=== PATIENT | male | born 1955 | race Caucasian/White ===

== ENCOUNTER 2024-08-19 14:47 | Outpatient (REF) | payer MEDICARE, SELFPAY ==
[2024-08-19 15:21] LABS: Abs Immature Grans 0.02 10^3/uL (0.0-0.06); Absolute Basophil Count 0.03 10^3/uL (0.0-0.2); Absolute Eosinophil Count 0.03 10^3/uL (0.0-0.7); Absolute Lymphocyte Count 1.15 10^3/uL (1.2-3.4); Absolute Monocyte Count 0.42 10^3/uL (0.1-0.8); Absolute Neutrophil Count 2.94 10^3/uL (1.2-6.7); Basophils % 0.7 %; Eosinophils % 0.7 %; HCT 47.1 % (40.0-50.0); HGB 16.8 g/dL (13.5-17.5); Immature Grans % 0.4 %; Lymphocytes % 25.1 %; MCH 32.1 pg (27.0-33.0); MCHC 35.7 % (32.0-36.0); MCV 90 fL (80-95); MPV 10.9 fL (8.0-11.0); Monocytes % 9.2 %; Neutrophils % 63.9 %; Platelet Count 185 10^3/uL (130-400); RBC 5.23 10^6/uL (4.36-5.78); RDW 12.3 % (11.8-14.1); RDW-SD 39.9 fL; WBC 4.59 10^3/uL (4.4-10.8)
[2024-08-19 16:39] LABS: ALT 21 U/L (16-63); AST 20 U/L (15-37); Alkaline Phosphatase 55 U/L (46-116); Anion Gap 8.8 mmol/L (3-11); BUN 11 mg/dL (7-18); Bilirubin, Total 1.4 mg/dL (0.2-1.0); CO2 26.2 mmol/L (21.0-32.0); CREATININE 1.2 mg/dL (0.70-1.30); Calcium 9.4 mg/dL (8.5-10.1); Chloride 103 mmol/L (98-107); Estimated GFR 65.06 (mL/min/1.73m2); Glucose 103 mg/dL (74-106); Potassium 4.2 mmol/L (3.5-5.1); Sodium 138 mmol/L (136-145); Total Protein 6.9 g/dL (6.4-8.2)
== END 2024-08-19 14:48 | disposition home or self-care (01) ==
LOC: NCHCN 14:47
PROVIDERS: Visit Provider Family Medicine
DX: I10 Essential (primary) hypertension (principal); M1A.9XX0 Chronic gout, unspecified, without tophus (tophi)
CPT/HCPCS: 80053; 84550; 85025

== ENCOUNTER → 2024-09-25 12:58 | Outpatient (BNVA) | payer MEDICARE, SELFPAY | PROVIDERS: PCP Family Medicine; Referring Provider Family Medicine; Visit Provider Surgery | DX: Z12.11 Encounter for screening for malignant neoplasm of colon (principal); Z86.0109 Personal history of other colon polyps; Z79.01 Long term (current) use of anticoagulants | CPT/HCPCS: S0285 ==

== ENCOUNTER 2024-09-28 08:42 | Emergency (ER) | payer MEDICARE, SELFPAY ==
[2024-09-28] VITALS (12 sets, daily range): BP systolic 120–130; BP diastolic 68–82; PULSE 64–74; RESP 14–16; TEMP 36.1; O2SAT 96–98
[2024-09-28 09:33] LABS: Abs Immature Grans 0.02 10^3/uL (0.0-0.06); HCT 41.7 % (40.0-50.0); HGB 14.3 g/dL (13.5-17.5); Immature Grans % 0.5 %; MCH 31.4 pg (27.0-33.0); MCHC 34.3 % (32.0-36.0); MCV 92 fL (80-95); MPV 10.1 fL (8.0-11.0); Platelet Count 178 10^3/uL (130-400); RBC 4.55 10^6/uL (4.36-5.78); RDW 12.3 % (11.8-14.1); RDW-SD 41.0 fL; WBC 3.99 10^3/uL (4.4-10.8)
[2024-09-28 09:49] LABS: ALT 18 U/L (16-63); AST 18 U/L (15-37); Albumin 3.6 g/dL (3.4-5.0); Alkaline Phosphatase 50 U/L (46-116); Anion Gap 10.1 mmol/L (3-11); BUN 13 mg/dL (7-18); Bilirubin, Total 0.7 mg/dL (0.2-1.0); CO2 26.9 mmol/L (21.0-32.0); Calcium 8.7 mg/dL (8.5-10.1); Chloride 104 mmol/L (98-107); Estimated GFR 80.97 (mL/min/1.73m2); Glucose 108 mg/dL (74-106); Potassium 3.8 mmol/L (3.5-5.1); Sodium 141 mmol/L (136-145); Total Protein 6.4 g/dL (6.4-8.2)
[2024-09-28] MEDS: Oxymetazolone 0.05% SPRAY 15 ML BTL NS (10:55)
--- NOTE | 2024-09-28 12:13 | W.ED.GENAD ---
Discharge Plan Disposition Patient Disposition: Home Condition: Stable Discharge Details Clinical Impression: Epistaxis Primary Care Provider: Terrance Dodge ED Provider: Amy Villalta Home Meds and New Rx's Prescriptions: Continued losartan 50 mg tablet 50 mg PO DAILY lansoprazole [Prevacid] 30 mg capsule,delayed release(DR/EC) 30 mg PO DAILY PRN allopurinol 300 mg tablet 300 mg PO DAILY Held Xarelto 20 mg tablet 10 mg PO DAILY Hold Instructions: Resume on 09/30/24. Rx Instructions: must administer with evening meal Discharge Instructions Instructions: Nosebleeds ED Additional Instructions: Take the Augmentin as prescribed Have the Rhino Rocket removed in 5 days I am placing referral to ear nose and throat You may instill Afrin in your left nare as needed make sure to clear your nasal passage by blowing your nose only on the right side prior to instillation Refrain from bending or exertion Please return should develop new or worsening complaints including recurrent bleeding or worsening pain Referrals: Terrance Dodge MD [Primary Care Provider, Medicine] Josiah Younger MD [ [facility] STAFF PHYSICIAN, ENT Surgical] HPI General Date/Time Provider Initiated Documentation: 09/28/24 08:43. HPI Narrative: 69-year-old male with history of PEs on chronic anticoagulation, Mariee's esophagus, hypertension, and gout presenting with unprovoked epistaxis intermittently throughout the week. Managed bleeding with pressure, effective until today. Despite 20 minutes of pressure, bleeding from right nostril persisted and trickled down throat. No trauma reported. Took reduced dose of Xarelto (10 mg) last evening. Afrin nasal spray instilled twice in left nostril, helped with mild overflow bleeding. Related Data Home Medications ?Medication ?Instructions ?Recorded ?Confirmed allopurinol 300 mg tablet 300 mg PO DAILY 09/23/24 09/28/24 lansoprazole 30 mg capsule,delayed 30 mg PO DAILY PRN 09/23/24 09/28/24 release (Prevacid) losartan 50 mg tablet 50 mg PO DAILY 09/23/24 09/28/24 rivaroxaban 20 mg tablet (Xarelto) 10 mg PO DAILY 09/23/24 09/28/24 Held on 09/28/24. Instructions: Resume on 09/30/24. Allergies Allergy/AdvReac Type Severity Reaction Status Date / Time azithromycin (From Zithromax) AdvReac Severe diarrhea Verified 09/28/24 09:06 General Stated Complaint: Epistaxis FEDERICO: 3 Exam Narrative Exam Narrative: General Appearance: Alert, oriented, no distress. Vital signs: Within normal limits. HEENT: Brisk nasal bleeding from right nare, scant oozing after intervention. Mildly persistent bleeding in left nare likely overflow. Respiratory: Within normal limits. Cardiovascular: Hemodynamically stable. Skin: Warm and dry, no rash. Neurological: Alert, oriented. Course Vital Signs Vital signs: Vital Signs Temperature 36.1 C L 09/28/24 08:54 Pulse 66 09/28/24 08:54 Respiratory Rate 16 09/28/24 08:54 Blood Pressure 127/82 09/28/24 08:54 Pulse Oximetry 98 09/28/24 08:54 Temperature 36.1 C L 09/28/24 08:54 Temperature Source Tympanic 09/28/24 08:54 Pulse 72 09/28/24 11:30 Respiratory Rate 14 09/28/24 11:30 Respiratory Depth Normal 09/28/24 09:36 Blood Pressure 120/80 09/28/24 11:30 Blood Pressure Mean 91 09/28/24 10:31 Blood Pressure Position Sitting 09/28/24 10:31 Pulse Oximetry 96 09/28/24 11:30 Oxygen Delivery Method Room Air 09/28/24 10:31 Oxygen Flow Rate 0 09/28/24 10:31 Pain Level 0 09/28/24 11:30 Lab/Test Results Lab/Test Results: Laboratory Tests Range/Units 09/28/24 09:14 WBC (4.4-10.8) 10^3/uL 3.99 L RBC (4.36-5.78) 10^6/uL 4.55 Hgb (13.5-17.5) g/dL 14.3 Hct (40.0-50.0) % 41.7 MCV (80-95) fL 92 MCH (27.0-33.0) pg 31.4 MCHC (32.0-36.0) % 34.3 RDW (11.8-14.1) % 12.3 Plt Count (130-400) 10^3/uL 178 MPV (8.0-11.0) fL 10.1 Immature Gran % % 0.5 Neutrophils % % 55.6 Lymphocytes % % 31.6 Monocytes % % 8.5 Eosinophils % % 3.0 Basophils % % 0.8 Nucleated RBC % (0.0-0.3) % 0.0 Absolute Neutrophils (1.2-6.7) 10^3/uL 2.22 Absolute Lymphocytes (1.2-3.4) 10^3/uL 1.26 Absolute Monocytes (0.1-0.8) 10^3/uL 0.34 Absolute Eosinophils (0.0-0.7) 10^3/uL 0.12 Absolute Basophils (0.0-0.2) 10^3/uL 0.03 Sodium (136-145) mmol/L 141 Potassium (3.5-5.1) mmol/L 3.8 Chloride (98-107) mmol/L 104 Carbon Dioxide (21.0-32.0) mmol/L 26.9 Anion Gap (3-11) mmol/L 10.1 BUN (7-18) mg/dL 13 Creatinine (0.70-1.30) mg/dL 1.0 Est GFR (CKD-EPI 2020) (mL/min/1.73m2) 80.97 Glucose (74-106) mg/dL 108 H Calcium (8.5-10.1) mg/dL 8.7 Total Bilirubin (0.2-1.0) mg/dL 0.7 AST (15-37) U/L 18 ALT (16-63) U/L 18 Alkaline Phosphatase (46-116) U/L 50 Total Protein (6.4-8.2) g/dL 6.4 Albumin (3.4-5.0) g/dL 3.6 Procedure Epistaxis Control Date of Procedure: 09/28/24 Time of Procedure: 12:17 Provider that performed the procedure: Amy Villalta Patient Consented: Verbally Time Out Performed: Yes Nostril: right Nose prepped with: tetracaine Direct Inspection: yes and unable to visualize Clots Removed by: blowing nose and suction Device Inserted: Rhino rocket/nasal tampon and Rapid rhino 7.5cm single lumen Complications: continued epistaxis Medical Decision Making CBC and CMP reassuring. Initial Assessment: 69-year-old male with history of PEs on chronic anticoagulation, Mariee's esophagus, hypertension, and gout. Presents with unprovoked epistaxis. Brisk nasal bleeding from right nare, hemodynamically stable, alert and oriented. ED Course: - Rhino rocket with lidocaine placed. - Blood work (CBC, CMP) checked, results reassuring. - Observed for 2-1/2 hours. - Afrin nasal spray instilled 2 x 2 in left nare. - Marked improvement in coagulation. - Hold Xarelto for 2 days. - Referral to ENT. Final Assessment: Acute nasal hemorrhage controlled with Rhino rocket and Afrin nasal spray. Blood work reassuring. Marked improvement observed. Hold Xarelto for 2 days. Referral to ENT. Clinical Impression: - Epistaxis Disposition: - Stable for discharge. - Hold Xarelto for 2 days. - Referral to ENT. Patient Education: Return precautions reviewed. MDM Components Evaluation: - Number of Differential Diagnoses or Management Options: Epistaxis - Amount and Complexity of Data Reviewed: Blood work (CBC, CMP) - Risk of Complication and Morbidity or Mortality: Risk due to anticoagulation and potential for recurrent epistaxis. [facility] All Active Problems (Updated 09/28/24 @ 11:53 by STEF Garg) Epistaxis (Acute) Chronic anticoagulation (Acute) Encounter for colonoscopy due to history of colonic polyp (Acute) Barretts esophagus (Acute) Essential hypertension (Acute) Medical History Tubular adenoma of colon (~02/2022) Seasonal allergic rhinitis Chronic primary low back pain History of kidney stones Chronic gouty arthritis BPH (benign prostatic hyperplasia) NATE (obstructive sleep apnea) Mixed hyperlipidemia Venous insufficiency of leg DVT (deep venous thrombosis) History of pulmonary embolism H/O long-term (current) use of anticoagulants Social History Smoking/Tobacco Use Status: Former Tobacco Use Smoking risk assessment performed?: Yes Alcohol Intake: current Alcohol Intake frequency: 0-2 drinks per day Alcohol type: beer Drug use: Occasionally Substance use type: marijuana Housing: house Current gender identity: male Do you feel safe at home: Yes Do you feel safe in your relationship?: Yes PAWSS Have you Been Recently Intoxicated or Drunk Within the Last 30 days?: No Have you Ever Experienced Previous Episodes of Alcohol Withdrawal?: No Have you ever Experienced Withdrawal Seizures?: No Have you ever Experienced Delirium Tremens(DT)s?: No Have you ever undergone Alcohol Rehabilitation Treatment (i.e, inpt ot outpatient treatment programs)?: No Have you ever Experienced Blackouts?: No Have you ever Combined Alcohol with other Downers within the last 90 days?: No Have you ever Combined Alcohol with any other Substance of Abuse during the last 90 days?: No Positive Blood Alcohol level on Presentation? [PCS.BAL]: No Evidence of Increased Autonomic Activity (i.e. HR>120, tremor, sweating, agitation, nausea)?: No Result: 0
--- NOTE | 2024-09-28 15:53 | NUR.NOTE ---
Addendum entered by Ebony Mckenzie 09/28/24 16:27: Amy Villalta called in a prescription to [facility] in [place] for Augmentin. Patient called and is aware of this. [phone] Original Note: Access chart to see if there was an antibiotic sent to pharmacy. Pt called stating that one was supposed to be sent but was not there. Note given to provider regarding this. Nursing Note:
== END 2024-09-28 11:30 | disposition home or self-care (01) ==
PROVIDERS: Emergency Provider Physician Assistant; PCP Family Medicine
DX: R04.0 Epistaxis (principal); Z79.01 Long term (current) use of anticoagulants
CPT/HCPCS: 99283 ×2; 30903; 36415; 80053; 85025

== ENCOUNTER 2024-09-29 11:46 | Emergency (ER) | payer MEDICARE, SELFPAY ==
--- NOTE | 2024-09-29 11:45 | DI.CT_ITS ---
Exam(s) CT HEAD FACIAL WO EXAM: CT HEAD FACIAL WO CLINICAL HISTORY: rhinorocket placd ystdy, now pain head, eye,face R. TECHNIQUE: Imaging Protocol: Axial computed tomography images with coronal and sagittal reformatted images were created and reviewed COMPARISON: No exams were available for comparison FINDINGS: CT Head: Ventricles and Extra axial spaces: Normal in size and morphology for the patient's age. Hemorrhage: None. Cerebral parenchyma: There is no evidence of an acute territorial infarct. No acute mass effect is present. Midline shift: None. Brainstem/Cerebellum: Normal. Calvarium: Normal. Visualized Paranasal sinuses/Mastoids: In the left maxillary sinus, there is mild mucosal thickening in the small fluid level. In the right maxillary sinus there is a moderate size fluid level present. Some of the fluid in the maxillary sinuses is of hyper density suggesting hemorrhage. There is a small amount of fluid seen in the right sphenoid sinus. Is opacification of a few anterior right ethmoid air cells. The mastoid air cells are clear. Soft Tissues: Unremarkable. CT Face: Facial Bones: There is deformity of the nasal bones consistent with a fracture. This is of indeterminate acuity. The nasal septum deviates to the right. There is bilateral middle turbinate kayla bullosa. Sinuses and Mastoids: Please see above discussion under visualized paranasal sinuses/mastoids. Globes, extraocular muscles, optic nerves and retrobulbar fat: Normal. Upper aerodigestive tract: There is a tubular structure seen in the right nasal cavity consistent with a nasal tamponade device. Mandible and bilateral temporomandibular joints: Normal. Soft tissues: Normal. IMPRESSION: 1. No acute intracranial process. 2. Deformity of the nasal bones suspicious for nasal fracture of indeterminate acuity. 3. High density fluid seen in the maxillary sinuses and right sphenoid sinus suggesting hemorrhage. 4. Tubular device seen in the right nasal passageway consistent with a nasal time for nodule vice. RADIATION DOSE DELIVERED: 1,170.73mGy.cm Total DLP DATA REPOSITORY: All CT scans at this facility are submitted to the National Radiology Data Registry (NRDR) Dose Index Registry (DIR) with the [employer] [place] [employer] (ACR). RADIATION OPTIMIZATION: All CT scans at this facility use at least one of these dose optimization techniques: automated exposure control; mA and/or kV adjustment per patient size (includes targeted exams where dose is matched to clinical indication); or iterative reconstruction.
[2024-09-29 11:51] VITALS: BP 145/80; PULSE 71; RESP 14; TEMP 36.7; O2SAT 96
[2024-09-29 14:00] VITALS: BP 146/73; PULSE 71; RESP 18; O2SAT 99
--- NOTE | 2024-09-29 15:46 | W.ED.GENAD ---
Discharge Plan Disposition Patient Disposition: Home Condition: Stable Discharge Details Clinical Impression: Epistaxis, Sinus pressure Primary Care Provider: Terrance Dodge ED Provider: Amy Villalta Home Meds and New Rx's Prescriptions: New oxycodone 5 mg tablet 5 mg PO Q8H PRNQty: 10 0RF Continued losartan 50 mg tablet 50 mg PO DAILY lansoprazole [Prevacid] 30 mg capsule,delayed release(DR/EC) 30 mg PO DAILY PRN allopurinol 300 mg tablet 300 mg PO DAILY Xarelto 20 mg tablet 10 mg PO DAILY Rx Instructions: must administer with evening meal amoxicillin-pot clavulanate 875-125 mg tablet 1 tab PO BID Qty: 14 0RF Discharge Instructions Instructions: Nosebleeds ED Additional Instructions: Please the Afrin nasal spray per package insert regularly for no more than 3 days in total Continue to hold your Xarelto until the or 02 October You do have quite a bit of blood in your sinus which is likely causing the pressure and pain, you may take Tylenol regularly and add oxycodone as needed, this medication is addictive and you should not operate a vehicle while taking this medication It can also cause constipation Please call ENT tomorrow and let them know this is an emergency department follow-up Please return earlier should you have fever, worsening bleeding, or should any new concerns arise Rhino Rocket removal on or Monday of this week in the emergency department or at ENT office Continue antibiotics Referrals: Terrance Dodge MD [Primary Care Provider, Medicine] Josiah Younger MD [ [facility] STAFF PHYSICIAN, ENT Surgical] Discharge Data Discharge Date/Time-TO BE ENTERED AT DEPARTURE: 09/29/24 14:01 HPI General Date/Time Provider Initiated Documentation: 09/29/24 11:48. HPI Narrative: 69-year-old male rechecks after Rhino Rocket placement yesterday. Experiences facial pressure and scant nasal discharge in throat, no significant bleeding. Denies chest pain, shortness of breath, fever, or chills. Related Data Home Medications ?Medication ?Instructions ?Recorded ?Confirmed allopurinol 300 mg tablet 300 mg PO DAILY 09/23/24 09/29/24 lansoprazole 30 mg capsule,delayed 30 mg PO DAILY PRN 09/23/24 09/29/24 release (Prevacid) losartan 50 mg tablet 50 mg PO DAILY 09/23/24 09/29/24 rivaroxaban 20 mg tablet (Xarelto) 10 mg PO DAILY 09/23/24 09/29/24 amoxicillin 875 mg-potassium 1 tab PO BID #14 tabs 09/28/24 09/29/24 clavulanate 125 mg tablet oxycodone 5 mg tablet 5 mg PO Q8H PRN #10 tabs 09/29/24 Previous Rx's ?Medication ?Instructions ?Recorded amoxicillin 875 mg-potassium 1 tab PO BID #14 tabs 09/28/24 clavulanate 125 mg tablet oxycodone 5 mg tablet 5 mg PO Q8H PRN #10 tabs 09/29/24 Allergies Allergy/AdvReac Type Severity Reaction Status Date / Time azithromycin (From Zithromax) AdvReac Severe diarrhea Verified 09/29/24 11:53 General Stated Complaint: Recheck FEDERICO: 4 Exam Narrative Exam Narrative: General Appearance: Alert, oriented, no acute distress. Vital signs: Within normal limits. HEENT: Mild periorbital swelling, no crepitus. Pupils equal, round, reactive to light and accommodation. No visible bleeding. Respiratory: Within normal limits. Skin: Warm and dry, no rash. Neurological: Normal. Course Vital Signs Vital signs: Vital Signs Temperature 36.7 C 09/29/24 11:51 Pulse 71 09/29/24 11:51 Respiratory Rate 14 09/29/24 11:51 Blood Pressure 145/80 H 09/29/24 11:51 Pulse Oximetry 96 09/29/24 11:51 Temperature 36.7 C 09/29/24 11:51 Temperature Source Oral 09/29/24 11:51 Pulse 71 09/29/24 14:00 Respiratory Rate 18 09/29/24 14:00 Blood Pressure 146/73 H 09/29/24 14:00 Pulse Oximetry 99 09/29/24 14:[address] head and facial bones: blood in ethmoid and sphenoid sinuses, no acute significant abnormality or active bleeding. Initial Assessment: 69-year-old male presents for recheck after Rhino rocket placement with facial pressure and scant nasal discharge, no significant bleeding. Alert, oriented, afebrile. Mild periorbital swelling, no crepitus or visible bleeding. ED Course: - Ordered CT head and facial bones. - CT shows blood in ethmoid and sphenoid sinuses, no acute significant abnormalities or active bleeding. - Reviewed results with patient. - Prescribed oxycodone for pain control. - Recommended follow-up with ENT tomorrow. - Patient to continue Augmentin, apply ice, and use Afrin nasal spray. - Reviewed return precautions in detail. Final Assessment: Blood in ethmoid and sphenoid sinuses, no acute significant abnormalities or active bleeding. No acute infection. Pain management and follow-up care discussed. Clinical Impression: - Post-Rhino Rocket placement follow-up - Facial pressure - Scant nasal discharge Disposition: - Follow-Up: See ENT tomorrow. MDM Components Evaluation: - Number of Differential Diagnoses or Management Options: No acute infection. - Amount and Complexity of Data Reviewed: CT head and facial bones. - Risk of Complication and Morbidity or Mortality: Low risk based on current findings and treatment plan. PFSH All Active Problems (Updated 09/29/24 @ 13:41 by STEF Garg) Sinus pressure (Acute) Epistaxis (Acute) Epistaxis (Acute) Chronic anticoagulation (Acute) Encounter for colonoscopy due to history of colonic polyp (Acute) Barretts esophagus (Acute) Essential hypertension (Acute) Medical History Tubular adenoma of colon (~02/2022) Seasonal allergic rhinitis Chronic primary low back pain History of kidney stones Chronic gouty arthritis BPH (benign prostatic hyperplasia) NATE (obstructive sleep apnea) Mixed hyperlipidemia Venous insufficiency of leg DVT (deep venous thrombosis) History of pulmonary embolism H/O long-term (current) use of anticoagulants Social History Smoking/Tobacco Use Status: Former Tobacco Use Smoking risk assessment performed?: Yes Alcohol Intake: current Alcohol Intake frequency: 0-2 drinks per day Alcohol type: beer Drug use: Occasionally Substance use type: marijuana Housing: house Current gender identity: male Do you feel safe at home: Yes Do you feel safe in your relationship?: Yes PAWSS Have you Been Recently Intoxicated or Drunk Within the Last 30 days?: No Have you Ever Experienced Previous Episodes of Alcohol Withdrawal?: No Have you ever Experienced Withdrawal Seizures?: No Have you ever Experienced Delirium Tremens(DT)s?: No Have you ever undergone Alcohol Rehabilitation Treatment (i.e, inpt ot outpatient treatment programs)?: No Have you ever Experienced Blackouts?: No Have you ever Combined Alcohol with other Downers within the last 90 days?: No Have you ever Combined Alcohol with any other Substance of Abuse during the last 90 days?: No Positive Blood Alcohol level on Presentation? [PCS.BAL]: No Evidence of Increased Autonomic Activity (i.e. HR>120, tremor, sweating, agitation, nausea)?: No Result: 0
== END 2024-09-29 14:01 | disposition home or self-care (01) ==
PROVIDERS: Emergency Provider Physician Assistant; PCP Family Medicine
DX: R04.0 Epistaxis (principal); J32.9 Chronic sinusitis, unspecified; E78.2 Mixed hyperlipidemia; Z86.711 Personal history of pulmonary embolism; Z86.718 Personal history of other venous thrombosis and embolism; Z79.01 Long term (current) use of anticoagulants; Z87.891 Personal history of nicotine dependence
CPT/HCPCS: 99284; 70450; 70486